=== PATIENT | female | born 1940 | race Caucasian/White ===

== ENCOUNTER → 2020-12-27 | Outpatient (CLI) | payer MEDICARE | LOC: KOH-I 15:56 | DX: M51.16 Intervertebral disc disorders with radiculopathy, lumbar region (principal); M51.27 Other intervertebral disc displacement, lumbosacral region; M48.061 Spinal stenosis, lumbar region without neurogenic claudication; M48.07 Spinal stenosis, lumbosacral region; M43.16 Spondylolisthesis, lumbar region | CPT/HCPCS: 72148 ==